=== PATIENT | male | born 1985 | race Caucasian/White ===

== ENCOUNTER 2025-07-02 12:43 | Emergency (ER) | payer OTHER ==
[~2025-07-02] VITALS: Ht 175.3 cm; Wt 118.0 kg
[2025-07-02 13:29] LABS: BASO # 0.1 10^3/uL (0.0-0.2); BASO % 1.0 % (0.0-1.0); EOS # 0.1 10^3/uL (0.0-0.5); EOS % 1.6 % (0.0-3.0); LYMPH # 1.9 10^3/uL (1.5-5.0); LYMPH % 28.1 % (24.0-44.0); MONO # 0.7 10^3/uL (0.0-0.8); MONO % 10.6 % (2.0-8.0); NEUTROPHILS # 4.0 10^3/uL (1.5-8.5); NEUTROPHILS % 58.3 % (36.0-66.0); PLATELET COUNT, AUTOMATED 267 10^3/uL (150-450)
[2025-07-02 13:52] LABS: CALCIUM LEVEL 8.9 MG/DL (8.5-10.1); CARBON DIOXIDE LEVEL 28 MMOL/L (20-31); CHLORIDE LEVEL 104 MMOL/L (98-107); CK-MB VALUE MASS < 1.0 NG/ML (<3.6); CPK CREATINE PHOSPHOKINASE 45 U/L (46-171); CREATININE FOR GFR 0.95 MG/DL (0.70-1.30); GLOMERULAR FILTRATION RATE > 90.0 (>60); POTASSIUM SERUM 4.2 MMOL/L (3.5-5.1); SODIUM LEVEL 141 MMOL/L (136-145)
[2025-07-02] MEDS ORDERED: NITROGLYCERIN 0.4 MG SUBL TABLET SL PRN (13:55)
[2025-07-02] MEDS ORDERED: ISOVUE-370 76% 100 ML VIAL As Ordered ONE (13:57)
[2025-07-02] MEDS: ASPIRIN 81 MG CHEWABLE TABLET PO ONE (14:19)
[2025-07-02] MEDS ORDERED: ROSU10TA90 PO (14:56)
[2025-07-02 15:00] LABS: CPK CREATINE PHOSPHOKINASE 38 U/L (46-171)
[2025-07-02] MEDS ORDERED: HOME MED LIST COMPLETE! XX SCH (15:00)
[2025-07-02 15:01] LABS: ALT/SGPT 50 U/L (7.0-40); AST/SGOT 19 U/L (<34); CK-MB VALUE MASS < 1.0 NG/ML (<3.6)
[2025-07-02 15:03] LABS: FREE T4 1.18 NG/DL (0.89-1.76)
[2025-07-02 15:49] VITALS: BP 110/76; TEMP 97.3; O2SAT 96
== END 2025-07-02 15:51 | disposition home or self-care (01) ==
LOC: M ED 12:43
DX: M25.512 Pain in left shoulder (principal); E78.5 Hyperlipidemia, unspecified; I10 Essential (primary) hypertension; F17.220 Nicotine dependence, chewing tobacco, uncomplicated
CPT/HCPCS: 71045; 71275; 80048; 80076; 82550; 82553; 84439; 84443; 84484; 85025; 93005; 93041; 94760; 99285; Q9967